=== PATIENT | female | born 1970 | race Two or more races ===

== ENCOUNTER 2017-11-02 08:52 | Inpatient (IN) | payer OTHER ==
[~2017-11-02] VITALS: Ht 154.9 cm; Wt 53.5 kg
[2017-11-02] VITALS (11 sets, daily range): BP systolic 92–121; BP diastolic 65–76
[~2017-11-02 08:52] MED LIST: Bacitracin 50000 Units Vial ONE; Bupivacaine 0.5% Inj 30 ml vial INJ ONE; EPINEPHrine 1mg/1ml Amp ONE; Gelfoam Absorbable 1gm powder pkt TOPIC ONE; Gelfoam Size TOPIC ONE; IBUPROFEN600 MG ORAL; TYLENOL EXTRA500 MG ORAL; Thrombin 5000 units TOPIC ONE; Thrombin 5000 units spray kit TOPIC ONE; ceFAZolin sod 2 GM in D5W 110 ML IVPB ONE
[2017-11-02] MEDS ORDERED: Midazolam 2mg/2ml Inj ONE (11:58)
[2017-11-02] MEDS ORDERED: fentaNYL 100 mcg/2 mL IV ONE (11:58)
[2017-11-02] MEDS ORDERED: Lidocaine 1% MPF 10mg/ml 5ml ONE (12:06)
[2017-11-02] MEDS ORDERED: Propofol 200mg/20ml IV ONE (12:06)
--- NOTE | 2017-11-02 12:53 | Pre-Procedure Note/Attestation ---
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 I attest that, if there was a reasonable possibility of needing a blood transfusion, the patient (or the patient's legal apprenticeship training representative) was given the [facility] standardized written summary, pursuant to the [place] Blood Safety Act ([place] Health and Safety Code # 1645, as amended). I attest that I re-evaluated the patient just prior to the surgery and that there has been no change in the patient's H&P, except as documented below: Oniel Corley MD Nov 02, 2017 12:53
[2017-11-02] MEDS ORDERED: NS Irrig 1000ml ONE (13:00)
[2017-11-02] MEDS ORDERED: LR 1000ml ONE (13:00)
[2017-11-02] MEDS ORDERED: Propofol 1,000mg/ 100ml btl IV ONE (13:00)
[2017-11-02] MEDS ORDERED: Sterile Water Irrig 1000ml IRRIG ONE (13:00)
--- NOTE | 2017-11-02 13:52 | Anethesia Preoperative Eval ---
Anesthesia Pre-op PMH/ROS General Date of Evaluation: Nov 02, 2017 Time of Evaluation: 12:48 Anesthesiologist: Betsy ASA Score: ASA 2 Mallampati Score Class I : Soft palate, uvula, fauces, pillars visible Class II: Soft palate, uvula, fauces visible Class III: Soft palate, base of uvula visible Class IV: Only hard plate visible Mallampati Classification: Class II Surgeon: Barney Diagnosis: Cervical radiculopathy Surgical Procedure: ACDF C4-C5-C6 Anesthesia History: none Family History: no anesthesia problems Allergies: Coded Allergies: No Known Allergies (Unverified , 10/27/17) Medications: see eMAR Past Medical History Cardiovascular: Denies: HTN, CAD, [place], valve dz, arrhythmia, other Pulmonary: Denies: asthma, COPD, HOWARD, other Gastrointestinal/Genitourinary: Reports: GERD - mild; Denies: CRI, ESRD, other Neurologic/Psychiatric: Reports: other - cyhronic pain; Denies: dementia, CVA, depression/anxiety, TIA HEENT: Denies: cataract (L), cataract (R), glaucoma, CHEHALIS (L), CHEHALIS (R), other Hematology/Immune: Denies: anemia, DVT, bleeding disorder, other Musculoskeletal/Integumentary: Denies: OA, RA, DJD, DDD, edema, other PMH Narrative: as above PSxH Narrative: C- section Anesthesia Pre-op Phys. Exam Physician Exam Last Vital Signs Date Time Temp Pulse Resp B/P (MAP) Pulse Ox O2 Delivery O2 Flow Rate FiO2 11/02/17 09:40 97.6 70 20 115/73 (87) 98 97.6 11/02/17 09:20 Room Air Constitutional: NAD Neurologic: CN 2-12 intact Cardiovascular: RRR, no M/R/G Respiratory: CTA Gastrointestinal: S/NT/ND Airway Exam Mallampati Score: Class II MO: full Neck: stiff Teeth: intact Dentures: no upper, no lower Anesthesia Pre-op A/P Labs see chart Urine Test Test 11/02/17 09:00 Urine HCG, Qualitative Negative (NEGATIVE) Studies Pre-op Studies: EKG - NSR, CXR - WNL Risk Assessment & Plan Assessment: ASA 2 Plan: GA with ETT PONV prevention, neuromonitoring Status Change Before Surgery: No Pre-Antibiotics Drug: Ancef 1gr. Given Within 1 Hr of Incision: Yes Time Given: 13:22 Kevan Meyer MD Nov 02, 2017 13:52
[2017-11-02] MEDS ORDERED: Acetaminophen (Non formulary) 100 ML IV ONE (14:00)
[2017-11-02] MEDS ORDERED: Ketorolac 30mg Inj ONE (14:31)
[2017-11-02] MEDS ORDERED: Glycopyrrolate 0.2mg/ml 1ml Vial ONE (14:31)
[2017-11-02] MEDS ORDERED: Neostigmine 1mg/ml 10ml Inj ONE (14:31)
[2017-11-02] MEDS ORDERED: LR 1000ml 1,000 ML IVLG SCH (14:35)
[2017-11-02] MEDS ORDERED: Ketorolac 30mg Inj IV PRN (14:45)
[2017-11-02] MEDS ORDERED: Midazolam 2mg/2ml Inj IVP PRN (14:45)
[2017-11-02] MEDS ORDERED: Metoclopramide 10mg/2ml Inj IVP PRN ×3 (14:45→19:35)
[2017-11-02] MEDS ORDERED: fentaNYL 100 mcg/2 mL IV PRN (14:45)
[2017-11-02] MEDS ORDERED: DiphenhydrAMINE 50mg/ml Inj IVP PRN (14:45)
[2017-11-02] MEDS ORDERED: Meperidine 50mg/ml Inj(FOR RIGORS ONLY) IV PRN (14:45)
--- NOTE | 2017-11-02 15:09 | Brief Operative Note ---
Immediate Post Operative Note Operative Note Pre-op Diagnosis: c456 HNP with radic Procedure: c456 acdf Post-op Diagnosis: same as pre-op Findings: consistent w/pre-op dx studies Surgeon: scooter Anesthesiologist: mili Anesthesia: general Specimen: yes Complications: yes Condition: stable Fluids: 1000 Estimated Blood Loss: none Drains: none Implant(s) used?: Yes - rti plate and 4web cage Oniel Corley MD Nov 02, 2017 15:09
[2017-11-02] MEDS ORDERED: HYDROmorphone 1mg/ml Carpuject SUBQ PRN (15:15)
[2017-11-02] MEDS ORDERED: HYDROcodone/Acetamin 7.5/325 tab ORAL PRN ×2 (15:15)
[2017-11-02] MEDS ORDERED: Norco 5mg/325mg tab ORAL PRN (15:15)
[2017-11-02] MEDS ORDERED: Milk of Magnesia 30ml Ud ORAL PRN (15:15)
--- NOTE | 2017-11-02 15:29 | Immediate Post-Op Evaluation ---
Immediate Post-Op Evalulation Immediate Post-Op Evalulation Procedure: C4-C5-C6 ACDF Date of Evaluation: Nov 02, 2017 Time of Evaluation: 15:28 IV Fluids: 1200 Blood Products: none Estimated Blood Loss: <50 Urinary Output: 200 Blood Pressure Systolic: 94 Blood Pressure Diastolic: 56 Pulse Rate: 70 Respiratory Rate: 22 O2 Sat by Pulse Oximetry: 99 Temperature (Fahrenheit): 97.6 Pain Score (1-10): 2 Nausea: No Vomiting: No Complications NONE Patient Status: reacts, patent, extubated, none Hydration Status: adequate Kevan Meyer MD Nov 02, 2017 15:29
--- NOTE | 2017-11-02 15:39 | Diagnostic Imaging Report ---
Indication: Neck pain Technique: 3 intraoperative fluoroscopic images of the cervical spine during spinal surgery submitted for archival to PACS. Operating surgeon: Oniel Corley MD Total fluoroscopy time: 5.8 seconds Total fluoroscopy dose: 0.43 mGy Comparison: None Findings: Intraoperative images from cervical spinal surgery demonstrate an indwelling endotracheal tube. There is anterior fusion by means of anterior plate and screws from C4 to C6 with interbody spacers at C4-C5 and C5-C6. Impression: Fluoroscopic images from spinal surgery. Please see operative report.
[2017-11-02] MEDS ORDERED: D5 1/2NS 1,000 ML IV SCH (17:12)
--- NOTE | 2017-11-02 17:15 | Operative Note - Dictated ---
DATE OF OPERATION: 11/02/2017 SURGEON: Oniel Corley M.D. CELERY PACKER: . ANESTHESIOLOGIST: Kevan Meyer M.D. ANESTHESIA TYPE: General endotracheal anesthesia. 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 PROCEDURE: 1. Wide and radical diskectomy and decompression of spinal cord and neuroforamen C4-C5 and C5-C6. 2. Structural cage placement using 4 web cage. 3. Use of local autograft as well as Signafuse bone graft substitute. 4. Anterior instrumentation using RTI plate. 5. Use of fluoroscope. 6. Use of operating microscope. ESTIMATED BLOOD LOSS: 50 mL. FLUIDS GIVEN: 1000 mL. COMPLICATIONS: None. FINDINGS: Stable fixation. RISK NOTE: The patient was explained in detail, risks and benefits of surgery to include, but not be limited to those of bleeding, infection, damage to nerves, vessels, tendons, and anesthetic risks including allergic reaction and even possibly . The patient understood and wished to proceed. Risk for continued pain developing adjacent level pseudoarthrosis and need for additional surgery were discussed. The patient understood and wished to proceed. INDICATIONS: The patient is a very pleasant 47-year-old with fairly significant neck pain with radiation alternating in both upper extremities. MRIs demonstrate fairly large disc protrusions at C4-C5 and C5-C6 and a smaller disc protrusion/annular tear at C6-C7. I did discuss with her the option of three-level fusion or a hybrid partial fusion and partial disc replacement. It was ultimately decided to proceed with a 2-level fusion at C5-C6 and to observe C6-C7 and hopefully, we could avoid surgical intervention, possibly more bases/emergent technology options may become available for the C6-C7 level. The patient understood and wished to proceed. PROCEDURE IN DETAIL: The patient was taken to the operative suite. After general endotracheal anesthesia was obtained, Soriano catheter was placed. She was positioned supine onto a radiolucent table. A bolster was placed under her neck. The neck was prepped and draped in usual sterile fashion. Fluoroscope was brought in and the C5 level was visualized. A transverse incision was carried out after the skin was infiltrated with Marcaine with epinephrine. The incision was carried through the subcutaneous. The platysma was split in line perpendicular to the fibers. The interval medial to sternocleidomastoid was identified and was bluntly dissected down to the prevertebral fascia. A self hand-held retractors were used. Mobilization of the longus coli was performed. A needle was placed at C5-C6 and fluoroscopically this was verified. Jonatan posts were then placed at C5 and C6. Wide and radical diskectomy was then performed under fluoroscopic guidance at C5-C6 using combination of curette, pituitaries, and Kerrison punches. High-speed drill was used to remove the osteophytes posteriorly at C5-C6. This bone graft was used as a slurry for augmentation of the fusion later. At this point, the Microsect curette was used and the PLL was elevated. Kerrison punch was then used #2 to remove the posterior longitudinal ligament and performed a thorough foraminotomy as well. Meticulous hemostasis was then achieved. A 6 mm 7-degree lordotic, small 4-web cage was chosen after a trial demonstrated this to be a good size. The actual implant was then centrally packed with Signafuse. The cage was inserted into the disk space. The periphery was packed with local autograft bone. Jonatan posts were then removed from C6, placed into C4, and in an identical fashion, wide and radical diskectomy with decompression was performed at the C4-C5 level. Preparation of the endplates had to be performed as this area had a concavity. Once complete diskectomy was completed and a thorough decompression was completed, the similar size 6 mm interbody device was chosen, packed with Signafuse, and placed inside the disk space. The periphery of the space was also packed with Signafuse and local autograft bone. At this point, both Jonatan posts were removed. Bone wax applied. The appropriate size 26 mm cage was then chosen. It was applied to the anterior vertebral body and first 2 screws at C5 were applied. A 12 mm screws were placed and the screws were angled to obtain maximal purchase. Once the C5 screws were complete then the screws at C4 and C6 were applied and locked to manufacture's specification. Copious irrigation was performed. Meticulous hemostasis was achieved. Final x-rays demonstrated hardware in good position and bone graft in good position. The platysma was then repaired using 3-0 Vicryl and subcutaneous closure using 4-0 Vicryl. Dermabond and sterile dressing was applied. The patient was subsequently awakened, extubated, and transferred to recovery room in stable condition. Sponge and needle counts were correct. Oniel Collette Corley DR: JAYSON JOB#: [id number] CC:
[2017-11-02] MEDS: Docusate 100mg cap ORAL SCH (17:50)
[2017-11-02] MEDS ORDERED: Morphine Sulfate 4mg/ml Inj (IV USE ONLY) IM PRN (21:15)
[2017-11-02] MEDS ORDERED: TransDerm Scop 1mg/72HR Patch TDERMAL PRN (21:30)
[2017-11-02] MEDS: ceFAZolin sod 1 GM in D5W 55 ML IV SCH (21:53)
[2017-11-02] MEDS: D5 1/2NS 1,000 ML IV SCH (21:59)
[2017-11-02] MEDS ORDERED: Chloraseptic Spray 20mL Bottle ORAL ONE (22:00)
[2017-11-02] MEDS ORDERED: Chloraseptic Spray 20mL Bottle ORAL PRN (22:00)
[2017-11-02] MEDS: traMADol 50mg tab ORAL PRN (22:56)
[2017-11-03] MEDS: D5 1/2NS 1,000 ML IV SCH ×2 (01:32→10:47)
[2017-11-03 04:00] VITALS: BP 95/70
--- NOTE | 2017-11-03 05:00 | Consultation ---
DATE OF CONSULTATION: 11/02/2017 CONSULTING PHYSICIAN: Alberto Griggs M.D. REFERRING PHYSICIAN: Oniel Corley M.D. REASON FOR CONSULT: Acute pain consult. HISTORY OF PRESENT ILLNESS: Dear Dr. Oniel Corley, Thank you kindly for consulting me to evaluate and render an opinion as to how to proceed in the management of the patient's acute postoperative cervical spine pain after cervical spine instrumentation surgery today. The patient is a 47-year-old woman, who injured her neck after a work-related injury. She complained of severe discomfort and nausea after surgery. You consulted me to help with the pain and nausea control. I saw the patient at bedside. I performed detailed history and physical examination with the nurse RN, Alecia, who interpreted Vietnamese. I spent over 75 minutes in consultation with an additional of 30 minutes in medical record review. I reviewed multiple records from the patient's medical chart including utilization review and surgical authorization by [employer] 10/01/2017 authorizing cervical spine instrumentation surgery as certified. Preoperative history and physical by Dr. Hari Odell dated 10/27/2017 along with diagnostic testing including laboratory studies, 12-lead EKG, and chest x-ray. Further record review included multiple reports from today's date of surgery at [facility], 11/02/2017, including consent for surgical treatment, consent for anesthesia, consent for blood products, medication administration record, medication reconciliation order form, PACU record, PACU orders, anesthesia record, pre and post anesthesia evaluation record, implant log, surgical invasive procedure check list, preoperative nurse implant care, 24-hour medical surgical flow sheet, postoperative spine surgery orders by Dr. Corley, operative report by Dr. Corley. PAST MEDICAL HISTORY: 1. Acute postoperative cervical spine pain, status post cervical spine instrumentation surgery by Dr. Oniel Corley, October 2017. 2. Work-related injury. 3. Severe postoperative nausea and vomiting, PONV. 4. Migraine headaches. PAST SURGICAL HISTORY: section. MEDICATIONS: At home, NSAIDs. ALLERGIES: No known drug allergies. FAMILY HISTORY: Diabetes, malignancy. SOCIAL HISTORY: The patient denies tobacco or marijuana usage. She drinks alcohol rarely. REVIEW OF SYSTEMS: Per attending physician. PHYSICAL EXAMINATION: VITAL SIGNS: Age 47, height 5 feet 1 inch, weight 129 pounds, and body mass index 24. Afebrile, pulse 73, respirations 16, blood pressure 121/75, and oxygen saturation 94% on supplemental oxygen. HEENT: Neck dressing appears clean and dry. Significant discomfort with range of motion of flexion and extension. Moving all extremities x4 with 5/5 dorsiflexion and 5/5 plantar flexion in bilateral lower extremities. CHEST: Clear to auscultation. HEART: Regular rate and rhythm. ABDOMEN: Soft. NEUROLOGIC: Detailed neurologic exam per Dr. Corley. BREASTS: Deferred. GENITOURINARY: Deferred. DIAGNOSTIC DATA: A 12-lead EKG, normal sinus rhythm, ventricular rate 70. No evidence for acute cardiac ischemia. Preoperative chest x-ray shows no acute cardiopulmonary disease dated 10/27/2017. LABORATORY STUDIES: 11/02/2017 shows blood type O positive. negative. Preoperative labs from 10/27/2017, glucose 86, sodium 134, potassium 4.2, chloride 104, bicarbonate 26, BUN 12, and creatinine 0.7. Calcium 9.5. Phosphorus 3.6. Total protein 6.8. Albumin 4.3. AST 16, ALT 20, and alkaline phosphatase . Total bilirubin 0.3. Magnesium 2.3. White count 6, hematocrit 35, and platelets 251. INR 1.1 and PTT 27. Urine culture negative. IMPRESSION: 1. Acute postoperative cervical spine pain status post cervical spine instrumentation surgery by Dr. Oniel Corley October 2017. 2. Work-related injury. 3. Severe postoperative nausea and vomiting, PONV. 4. Migraine headaches. TREATMENT RECOMMENDATIONS: I would first recommend treating the patient's nausea symptoms as she has been actively vomiting, hopefully with improved nausea condition, her pain levels will reduce as well. She has failed treatment with Zofran, I have ordered Phenergan intramuscularly 12.5 mg with an immediate dose now, follow every hour for persistent nausea. I have also added p.r.n. dose scopolamine patch, as the patient denies glaucoma symptoms. I would hold off on applying the patch until after the Phenergan's result has been determined. I have set a tiered regimen of analgesics to help with her pain control. The patient is a poor historian and cannot recall the names of medications used after her injury of previous section. Therefore, we will start with a trial of Tylenol No. 3 with Codeine 1 tablet orally every 4 hours p.r.n. for mild pain. I have used tramadol 50 mg orally every 8 hours p.r.n. for moderate pain. She did receive a trial of subcutaneous Dilaudid. It is possible that the Dilaudid has been causing severe nausea. I therefore switched to morphine, which I dosed at 3 mg intramuscularly every three hours p.r.n. for severe breakthrough pain. I have chosen the intramuscular route, as this should be less emetogenic-effect compared to the intravenous route of morphine. The patient is complaining of gastric upset. I have ordered a dose of Protonix nightly for GI ulcer prophylaxis along with a p.r.n. dose of Mylanta, which I have asked to be dosed now, followed every 6 hours p.r.n. for persistent dyspepsia symptoms. I have ordered incentive spirometer to encourage good pulmonary toilet. I have asked the nurse to place Chloraseptic spray at the bedside to help with her sore throat complaints after her neck surgery. I have added p.r.n. dose of Catapres 0.1 mg orally every 8 hours in case of systolic blood pressure greater than 160 mmHg. I have added Benadryl 25 mg orally q.6 h. in case of any itching complaints. I will defer DVT prophylaxis to the surgeon. Alberto Griggs M.D. DR: HAI JOB#: [id number] CC:
[2017-11-03] MEDS: ceFAZolin sod 1 GM in D5W 55 ML IV SCH ×2 (05:18→13:21)
[2017-11-03] MEDS: Tylenol #3 tab (300mg/30mg) ORAL PRN ×3 (05:24→14:31)
[2017-11-03] MEDS: traMADol 50mg tab ORAL PRN (07:39)
[2017-11-03 08:00] VITALS: BP 109/67
[2017-11-03] MEDS: Docusate 100mg cap ORAL SCH (08:34)
[2017-11-03] MEDS ORDERED: Docusate 100mg/10ml Liq NG SCH (09:00)
--- NOTE | 2017-11-03 09:37 | Orthopedic Spine Progress Note ---
Ortho Spine - Progress Note Subjective Symptoms: c/o post-op neck pain, improved - as compared to pre-op Objective Vital Signs: Last 24 Hour Vital Signs Date Time Temp Pulse Resp B/P (MAP) Pulse Ox O2 Delivery O2 Flow Rate FiO2 11/03/17 08:38 98.5 11/03/17 08:19 Room Air 11/03/17 08:00 98.5 78 18 109/67 (81) 96 98.5 11/03/17 07:39 97.9 11/03/17 04:00 97.9 75 16 95/70 (78) 97 97.9 11/02/17 21:00 Nasal Cannula 3.0 11/02/17 20:00 97.4 73 16 121/75 (90) 94 97.4 11/02/17 18:39 98.4 11/02/17 18:09 98.4 11/02/17 16:50 98.4 79 16 111/73 (86) 99 98.4 11/02/17 16:50 Nasal Cannula 3.0 11/02/17 16:37 98 75 20 107/74 100 Nasal Cannula 3 98.0 11/02/17 16:34 67 20 109/76 100 Nasal Cannula 3 11/02/17 16:17 71 20 108/72 100 Nasal Cannula 3 11/02/17 15:57 71 20 110/74 100 Nasal Cannula 3 11/02/17 15:44 69 22 108/75 100 Simple Mask 8 11/02/17 15:44 97.8 11/02/17 15:30 75 22 101/67 100 Simple Mask 8 11/02/17 15:29 207.7 70 22 99 11/02/17 15:25 76 22 103/69 100 Simple Mask 8 11/02/17 15:20 97.5 76 22 92/65 100 Simple Mask 8 97.5 11/02/17 09:40 97.6 70 20 115/73 (87) 98 97.6 I&O: Intake and Output 11/02/17 11/03/17 19:00 07:00 Intake Total 1100 ml 1395 ml Output Total 225 ml Balance 875 ml 1395 ml Intake Oral 240 ml IV Total 1100 ml 1155 ml Output Urine Total 200 ml Estimated Blood Loss 25 ml # Voids 1 Wound: clean, intact Drains: none Neuro Status: normal Assessment Procedure Performed: c456 acdf Plan Plan: pain management, discharge plan, discharge to home Oniel Corley MD Nov 03, 2017 09:37
--- NOTE | 2017-11-03 10:20 | 48 Hour Post Anesthesia Eval ---
Post Anesthesia Evaluation Procedure: C4-C5-C6 ACDF Date of Evaluation: Nov 03, 2017 Time of Evaluation: 08:36 Blood Pressure Systolic: 109 0: 67 Pulse Rate: 78 Respiratory Rate: 18 Temperature (Fahrenheit): 98.5 O2 Sat by Pulse Oximetry: 96 Airway: patent Nausea: No Vomiting: No Pain Intensity: 3 Hydration Status: adequate Cardiopulmonary Status: Stable Mental Status/LOC: patient returned to baseline Follow-up Care/Observations: 0 Post-Anesthesia Complications: 0 Follow-up care needed: N/A Waqas Langley MD Nov 03, 2017 10:20
[2017-11-03 12:00] VITALS: BP 123/78
[2017-11-03] MEDS ORDERED: TRAMADOL HCL50 MG ORAL (14:34)
[2017-11-03] MEDS ORDERED: ACETAMINOPHEN-1 EAC1 ORAL (14:35)
[2017-11-03] MEDS ORDERED: D5 1/2NS 1000ml IV ONE (14:44)
--- NOTE | 2017-11-03 21:45 | Progress Note ---
DATE: 11/03/2017 ACUTE PAIN MANAGEMENT PHYSICIAN PROGRESS NOTE MEDICATIONS: Medication administration record reviewed. Medications include Ultram, Restoril, Phenergan, Protonix, Zofran, morphine, Reglan, milk of magnesia, Colace, Benadryl, Catapres, Tylenol No. 3 With Codeine, Fioricet, and Tylenol. LABORATORY STUDIES: No interval laboratory studies. OBJECTIVE: VITAL SIGNS: Pain level 5/10 on the visual analog pain scale. Afebrile, pulse 75, respirations 20, blood pressure 123/78, and oxygen saturation 98% on room air. I saw the patient at the bedside with her and the nurse RN, Barbara. The translated [place]uran. The surgeon, Dr. Corley, examined the patient earlier this morning and cleared the patient for discharge. The patient has been ambulating well and moving in and out of bed. Her [place] collar remains in place. The neck dressing appears clean and dry. The patient is swallowing, breathing, and phonating within normal limits. The patient has normal vital signs. The patient has been voiding urine without difficulties. The patient is tolerating advancing diet without any nausea symptoms. The patient's headache complaints have improved. Her nausea symptoms have improved as well. She has tolerated both Tylenol No. 3 With Codeine as well as tramadol for analgesia, and seems to have adequate efficacy from both of these agents. I have left a prescription for both Tylenol No. 3 With Codeine and tramadol for outpatient usage, with a quantity of 30 for each medication. I have directed the to contact Tomás at Dr. Corley's office for outpatient follow up appointment as well as per the patient's request for home assistance, to be coordinated with the insurance carrier. I see no contraindications for discharge trial home at this time. Alberto Griggs M.D. DR: JOSE JOB#: [id number] CC:
--- NOTE | 2017-11-04 11:39 | Discharge Summary ---
Discharge Summary Discharge Summary _ DATE OF ADMISSION: 11/02/2017 DATE OF DISCHARGE: 11/03/2017 CONSULTANTS: Dr. Alberto Griggs BRIEF HOSPITAL COURSE: Patient is a 47-year-old female, date of injury 05/26/2016. Patient felt pain on her back and had significant neck pain with radiation alternating in both upper extremities. MRI done demonstrated fairly large disc protrusion at C4-C5 and C5-C6 and a smaller disc protrusion/annular tear at C6-C7. She was admitted nd underwent wide radical discectomy with decompression of spinal cord and neuroforamen C4-C5 and C5-C6. She tolerated procedure well and postoperatively was admitted for pain management. She was seen by Dr. Griggs. Patient had nausea and was vomiting. She was given Zofran and Phenergan. She was given pain management with Tylenol No. 3. Dilaudid caused her and severe nausea. Medication was changed to morphine. He was given Protonix and Mylanta prn. She was encouraged use of incentive spirometry. She was placed on SCDs for DVTprophylaxis. She was seen by physical therapy and occupational therapy. Nausea improved. She was ambulating well and was using [place] neck collar. She was swallowing, breathing and phonating well. She was tolerating diet. She was eventually cleared for discharge home. 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 DISCHARGE MEDICATIONS: Refer to Discharge Medication List. DISCHARGE INSTRUCTIONS: Follow up with in a week. I have been assigned to dictate discharge summary on this account, and I was not involved in the patient's management. Karen Cloud NP Nov 04, 2017 11:39
== END 2017-11-03 14:45 | disposition home or self-care (01) | DRG 473 ==
LOC: SDSOVERFLO 08:52 → 3E 16:50
DX: M50.121 Cervical disc disorder at C4-C5 level with radiculopathy (principal); G89.18 Other acute postprocedural pain; R11.2 Nausea with vomiting, unspecified
CPT/HCPCS: 36415; 72040; 76001; 81025; 86850; 86900; 86901; 87081; 94003; 94150; J2250; J2405; J2710; J2765